=== PATIENT | female | born 1980 | race Caucasian/White ===

== ENCOUNTER 2023-06-15 10:45 | Outpatient (CLI) | payer MEDICAID, SELFPAY ==
--- OUTSIDE RECORDS SUMMARY | 2023-06-15 10:50 | XMS_ITS | Data Portability ---
Author Name Unknown Address [address] [place] [address] Phone [phone] Organization [facility], [facility] Address [address] [facility] [address] [place] [address] Assessment Encounter Date Assessment Date Assessment LastModified by Organization Details LastModified Time 02/18/2022 02/18/2022 Of note a total of 15 minutes was spent: preparing to see the patient by reviewing records, images, and laboratory data; obtaining/karthik davis separately obtained history; performing physical examination, counseling and educating patient/family/ caregiver; ordering appropriate medications, labs, imaging or procedures; documenting the clinical encounter; and coordination of care. Not available 02/18/2022 09:59:44 07/08/2022 07/08/2022 Of note a total of 20 minutes was spent: preparing to see the patient by reviewing records, images, and laboratory data; obtaining/karthik davis separately obtained history; performing physical examination, counseling and educating patient/family/ caregiver; ordering appropriate medications, labs, imaging or procedures; documenting the clinical encounter; and coordination of care. Not available 07/08/2022 18:20:44 Plan of Treatment Reminders Order Date Submit Date Provider Last Modified By Organization Details Last Modified Time Details Appointments None recorded. Lab kidney stone, 24-hour urine panel 2021 022 [email or web address] [facility], [address], [place], [address], 14:26:21 Referral None recorded. Procedures None recorded. Surgeries None recorded. Imaging US, kidney - pls call patient to schedule first available Ultrasound - Thank you 2021 022 [facility] Radiology Department, [address] [place], [address], 2 11:04:10 Medication Orders [facility] 2022 023 [email or web address] [facility], [place], [place], [address] [place], [address], 3 18:22:19 Patient TargetsNo targets recorded. Patient InstructionsNo instructions recorded. Reason for Referral None Reported. Results Created Date Observation Date Name Description Value Unit Range Abnormal Flag LastModifiedBy Organization Detail LastModifiedTime Result Notes None recorded. Problems Name Status Onset Date Resolution Date Notes Provider Name and Address Organization Details Recorded Time Clinical finding Active 013 N20.0 : Calculus of kidney - Notes:Negative Ureteroscopy for distal stone found on CT-Dr Morfin 02/20/2013-terrell nt removed today 02/27/2013 Not Available [facility] 10/12/2019 01:54:43 Problem Notes None recorded. Procedures Surgical History Date Name Laterality Status Provider Name and Address Organization Details Recorded Time Cystoscopy and treatment completed Not Available [facility] 10/05/2019 12:28:31 Cystoscopy and treatment completed Not Available [facility] 10/05/2019 12:28:31 Imaging Results None recorded. Procedure Notes None recorded. Medical Equipment None Reported. Allergies Allergen ID Allergen Name Allergen Category Reaction Reaction Severity Criticality Documentation Date Start Date Code Code System Note Provider Name and Address Organization Details Recorded Time 114527 latex environme nt,medica tion Not available Not available Not available 10/04/2019 84391 91 RxNorm Not Available [facility] 0 23:40:20 892251 lisinopri l medicatio n Not available Not available Not available 02/16/2022 28759 RxNorm Carol roy [place] [facility] 2 11:27:37 Medications Name Sig Start Date Stop Date Status Note LastModified by Organization Details LastModified Time [facility] Take one scoop daily dissolved in liquid. 03/15/ 2023 active Not Available Not Available Not Avai lable amoxicillin 500 mg capsule TAKE ONE CAPSULE BY MOUTH EVERY 8 HOURS active Not Available Not Available No t Available penicillin V potassium 500 mg tablet TAKE 2 TABLETS BY MOUTH NOW, THEN ONE TABLET EVERY 6 HOURS UNTIL GONE active Not Available Not Available N ot Available alprazolam 0.5 mg tablet TAKE ONE HALF TABLET BY MOUTH TWICE DAILY NEEDED FOR ANXIETY. active Not Available Not Available No t Available alprazolam 0.25 mg tablet TAKE ONE TABLET BY MOUTH TWICE A DAY NEEDED FOR ANXIETY active Not Available Not Available No t Available paroxetine 30 mg tablet TAKE ONE TABLET BY MOUTH EVERY DAY active Not Available Not Available No t Available hydroxyzine HCl 25 mg tablet TAKE ONE TO TWO TABLETS BY MOUTH THREE TIMES A DAY NEEDED FOR ANXIETY active Not Available Not Available No t Available hydrochloroth iazide 25 mg tablet TAKE ONE TABLET BY MOUTH EVERY DAY active Not Available Not Available No t Available zolpidem 5 mg tablet TAKE ONE TABLET BY MOUTH AT BEDTIME NEEDED FOR INSOMNIA active Not Available Not Available No t Available zolpidem 10 mg tablet TAKE ONE TABLET BY MOUTH AT BEDTIME NEEDED active Not Available Not Available No t Available atenolol 50 mg tablet TAKE ONE TABLET BY MOUTH EVERY DAY active Not Available Not Available No t Available Vitals Date Recorded Body height Body mass index (BMI) Body weight Provider Name and Address Organization Details Last Updated DateTime 02/18/2022 167.64 cm 32.3 kg/m2 27881.47 g Carol Perdue [facility] 02/18/2022 09:37:49 Date Recorded Body height Body mass index (BMI) Body weight Provider Name and Address Organization Details Last Updated DateTime 07/08/2022 167.64 cm 32.3 kg/m2 64518.47 g Carol Perdue [facility] 07/08/2022 10:40:30 Social History Question Answer Notes LastModified by Organizat ion Details LastModified Time Tobacco Smoking Status Never Smoker Not Available [facility] 10/05/2019 04:11:47 Race White Information n ot available 10/05/2019 Marital Status Informati on not available 10/05/2019 What Was The Date Of Your Most Recent Tobacco Screening? 07/08/2022 [email or web address] Information not available 07/08/2022 Sex: Female Functional Status None recorded. Mental Status None recorded. Family History Relationship Description Onset Age of this Age Resolved Age Notes Notes:Cancer, prostate:Fathe r Asthma:Mother Heart Disease:Mother Medical History Condition Response Kidney Stones Y Gynecological HistoryNo gynecological history recorded. Obstetrics History GPAL:G 0 P 0 0 0 0 Past Encounters Encounter ID Performer Location Encounter Start Date Encounter Closed Date Diagnosis/Indication [id number] Sim Saavedra MD [facility] [address] [place] [address] 02/18/2022 09:36:44 02/20/2022 10:50:04 Kidney stone [id number] MD [facility] [address] [place] [address] 07/08/2022 10:37:02 07/10/2022 10:16:51 Kidney stone Health Concerns Section Related Observation LastModified by Organization Detai ls LastModified Time None Recorded Concern Status LastModified by Organization Details LastModified Time None Recorded Advance Directives Directive None Recorded Payers Encounter Date Sequence Insurance Name Policy Number Policy Aleman Covered Member ID Aleman Member ID Guarantor Name 07/08/2022 1 [facility] [place] [place] [place] Jane De Oliveira [id number] Jane De Oliveira 07/08/2022 2 [facility] [place] [place] [id number] Jane De Oliveira [id number] Jane De Oliveira 02/18/2022 1 [facility]ESS [place] [place] [place] Jane De Oliveira [id number] Jane De Oliveira Notes Date Note Type Note Provider Name and Address Organization Details Recorded Time 02/18/2022 text/html HPI Notes: Ms. Gia maravilla is a very pleasant 39-year-old female who is now had approximately 20 episodes of nephrolithiasis. She has spontaneously passed the vast majority of her stones but has required 3 stents forward this course. She first made stones in the year 2006 during her second . She was intermittently followed by a urologist down at [facility] who did perform a 24-hour urine however she is not 100% sure what the results were. She was recommended to include some dietary citrate and increase her fluids but she is continue to form stones. She was most recently in the [facility] on May 18 with the acute onset of right-sided sided back pain consistent with previous stone episodes. She underwent a CT scan which did note a 8 x 5 mm calculus proximal ureter. Per her report she has had stones bilaterally and she brings a collection with her today some of which ranged from 1 to [address] up to approximately 1 cm in greatest dimension. 06/21/19: She is now status post cystoscopy, bilateral retrograde pyelograms, bilateral ureteroscopy, holmium laser lithotripsy, bilateral ureteral stent placement. Patient has had significant amount of discomfort with the indwelling stents and therefore presents today for stent removal. Denies any associated fevers, chills but has been occasionally nauseous. Her symptoms have otherwise been primarily urinary urgency and flank pain. 02/18/2022: She is now status post cystoscopy, bilateral retrograde pyelograms, bilateral ureteroscopy, holmium laser lithotripsy, bilateral ureteral stent placement. She has been doing well since our last meeting. Did pass a smal stone a few weeks ago but overall fairly easy. No current flank/back pain or urinary symptoms. This visit was conducted by telephone due to the COVID-19 crisis. Prior to conducting our telephone visit, the patient was apprised of the risks, benefits and alternatives to telephone visits including but not limited to poor audio quality, interrupted visits due to technological limitations, delays in medical evaluation and treatment due to deficiencies or failures of equipment, failure of security protocols resulting in a breach of privacy of personal medical information and a lack of access to complete medical records resulting in not fully informed decisions. Also, because of the COVID-19 pandemic, it was not possible for the patient to sign the privacy regulations, HIPAA release and assignment of benefits forms. The patient was given the opportunity to ask questions about these policies and gave verbal acknowledgement and approval of these policies as well as to hold this meeting by telephone. Lastly, the patient agreed to allowing their medication history to be pulled from a national pharmacy database to facilitate and coordinate their care. Sim Saavedra MD [address] [place] [address],[address], [place], [address], [facility] 02/18/2022 10:00:04 07/08/2022 text/html HPI Notes: Ms. Gia maravilla is a very pleasant 42-year-old female who is now had approximately 20 episodes of nephrolithiasis. She has spontaneously passed the vast majority of her stones but has required 3 stents forward this course. She first made stones in the year 2006 during her second . She was intermittently followed by a urologist down at [facility] who did perform a 24-hour urine however she is not 100% sure what the results were. She was recommended to include some dietary citrate and increase her fluids but she is continue to form stones. She was most recently in the [facility] ER on May 18 with the acute onset of right-sided sided back pain consistent with previous stone episodes. She underwent a CT scan which did note a 8 x 5 mm calculus proximal ureter. Per her report she has had stones bilaterally and she brings a collection with her today some of which ranged from 1 to [address] up to approximately 1 cm in greatest dimension. 06/21/19: She is now status post cystoscopy, bilateral retrograde pyelograms, bilateral ureteroscopy, holmium laser lithotripsy, bilateral ureteral stent placement. Patient has had significant amount of discomfort with the indwelling stents and therefore presents today for stent removal. Denies any associated fevers, chills but has been occasionally nauseous. Her symptoms have otherwise been primarily urinary urgency and flank pain. 02/18/2022: She is now status post cystoscopy, bilateral retrograde pyelograms, bilateral ureteroscopy, holmium laser lithotripsy, bilateral ureteral stent placement. She has been doing well since our last meeting. Did pass a smal stone a few weeks ago but overall fairly easy. No current flank/back pain or urinary symptoms. 07/08/2022: Here for follow up bilateral nephrolithiasis. Completed 24 hour urine for my evaluation. Two main findings were low urine volume and low urine citrate. This visit was conducted by telephone due to the COVID-19 crisis. Prior to conducting our telephone visit, the patient was apprised of the risks, benefits and alternatives to telephone visits including but not limited to poor audio quality, interrupted visits due to technological limitations, delays in medical evaluation and treatment due to deficiencies or failures of equipment, failure of security protocols resulting in a breach of privacy of personal medical information and a lack of access to complete medical records resulting in not fully informed decisions. Also, because of the COVID-19 pandemic, it was not possible for the patient to sign the privacy regulations, HIPAA release and assignment of benefits forms. The patient was given the opportunity to ask questions about these policies and gave verbal acknowledgement and approval of these policies as well as to hold this meeting by telephone. Lastly, the patient agreed to allowing their medication history to be pulled from a national pharmacy database to facilitate and coordinate their care. Sim Saavedra MD [address] [place] [address],[address], [address], [facility] 07/08/2022 18:25:11 OBGyn Episode No OBEpisode recorded.
--- OUTSIDE RECORDS SUMMARY | 2023-06-15 10:50 | XMS_ITS | Clinical Summary ---
Author Name Unknown Organization [email or web address] Address [place], [place] [address] Care Team Providers Care Manufacturing Advisor Name Role Phone Hussain Hutchins MD Primary Care Provider [phone] Allergies Active Allergy Reactions Criticality Noted Date Comments Latex Rash 05/24/2019 Lisinopril Cough 05/24/2019 Medications Medication Sig Dispensed Refills Start Date End Date Status VENTOLIN HFA 90 mcg/actuation inhaler 0 08/11/2018 Active atenolol (TENORMIN) 25 mg tablet 0 05/18/2019 Active PARoxetine (PAXIL) 30 mg tablet 0 05/03/2019 Active tamsulosin (FLOMAX) 0.4 mg capsule 0 05/19/2019 Active oxyCODONE-acetamin ophen, 5-325 mg, (PERCOCET) 5-325 mg per tablet 0 05/19/2019 Active tamsulosin (FLOMAX) 0.4 mg capsuleIndications :Kidney stone Take 1 capsule by mouth once daily after a meal. 20 Each 0 06/13/2019 Active HYDROcodone-acetam inophen, 5-325 mg, (NORCO) per tabletIndications: Kidney stone Take 1-2 tablets by mouth every 4 hours if needed for Pain Max acetaminophen dose: 4000 mg in 24 hrs. 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 Pulse 83 06/21/2019 1:16 PM REGIONAL SALES MANAGER Temperature 36.7 ??C (98 ??F) 06/21/2019 1:16 PM REGIONAL SALES MANAGER Respiratory Rate 14 06/13/2019 3:45 PM REGIONAL SALES MANAGER Oxygen Saturation 96% 06/21/2019 1:16 PM REGIONAL SALES MANAGER Inhaled Oxygen Concentration - - Weight 83 kg (182 lb 14.4 oz) 06/21/2019 1:16 PM REGIONAL SALES MANAGER Height 165.1 cm (5' 5) 06/13/2019 10:45 AM REGIONAL SALES MANAGER Body Mass Index 30.44 06/13/2019 10:45 AM REGIONAL SALES MANAGER Plan of Treatment Health Maintenance Due Date Last Done Comments COVID-19 vaccine series (#1) 1982 Tdap 1993 Depression screening for age 12+ 1994 HIV for age 15-65 1997 Hepatitis C screening for ag e 18-79 2000 Tetanus booster 2002 Pap test for age 21-65 06/10/2018 6, 06/10/2015, 12/06/2009 BMI (ht and wt on same day) for age 18+ 05/24/2020 05/24/2019 Influenza for age 9-49 12/25/2022 Pneumococcal series for age 6-64 Aged Out No longer eligible b ased on patient's age to complete this topic Medical Devices Implanted Type Area Alteration Tailor Apprentice Device Identifier Shelf Expiration Date Model / Serial / Lot Stent Uret [id number] Contour - [id number] Implanted:Qty: 1 on 06/13/2019 by Sim Saavedra MD at [facility] Right: Ureter [facility] 03/20/2022 [id number]# / / [id number] Stent Uret [id number] Contour - [id number] Implanted:Qty: 1 on 06/13/2019 by Sim Saavedra MD at [facility] Right: Ureter [facility] 02/19/2022 [id number]# / / [id number] Advance Directives Documents on File Type Date Recorded 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
--- NOTE | 2023-06-15 11:00 | US_ITS ---
Final Report Patient: CLARE GARRETT Facility:?[facility] Patient ID:?[id number] Site Patient ID:?[id number]. Site :?1982 Study:?US Abdomen/Pelvis RENAL-06/15/2023 12:19:42 PM Ordering Physician:?MARYCARMEN LANE Final Report: CLINICAL HISTORY: Kidney stones COMPARISON: CT 05/28/2019, ultrasound 11/22/2015 TECHNIQUE: Jackson scale and color Doppler images were acquired of the kidneys and urinary bladder. FINDINGS: Similar morphologic appearance of the kidneys compared to the prior ultrasound. No stones are present on the current exam. No hydronephrosis. The right kidney measures 10.7cm in length and the left kidney measures 10.5cm in length. The renal cortex appears thinned bilaterally measuring 5 millimeters on the right and 6 millimeters on the left. No abnormal vascularity. The urinary bladder appears incompletely distended. Color Doppler images reveal a normal appearance of both ureteral jets. There is no evidence of bladder calculi or diverticula. IMPRESSION: No sonographic evidence of renal stones. No hydronephrosis. Chronic thinning of the renal cortex. Dictated by Jose Munoz MD @ 06/16/2023 5:53:43 AM (Electronic Signature)
== END 2023-06-15 10:46 | disposition home or self-care (01) ==
PROVIDERS: PCP Family Medicine; Visit Provider Urology
DX: N20.0 Calculus of kidney (principal)
CPT/HCPCS: 76775

== ENCOUNTER 2023-07-12 13:51 | Outpatient (CLI) | payer MEDICAID, SELFPAY | END 2023-07-12 13:52 | disposition home or self-care (01) | PROVIDERS: PCP Family Medicine; Visit Provider Family Medicine | DX: I10 Essential (primary) hypertension (principal); M79.641 Pain in right hand; M79.642 Pain in left hand; Z13.29 Encounter for screening for other suspected endocrine disorder | CPT/HCPCS: 80048; 84443; 86200; 86431 ==

== ENCOUNTER 2024-05-26 11:03 | Outpatient (CLI) | payer MEDICAID, SELFPAY | END 2024-05-26 11:04 | disposition home or self-care (01) | LOC: US 11:04 | PROVIDERS: PCP Family Medicine; Visit Provider Urology | DX: N20.0 Calculus of kidney (principal) | CPT/HCPCS: 76770 ==

== ENCOUNTER 2024-06-23 12:51 | Outpatient (CLI) | payer MEDICAID, SELFPAY | END 2024-06-23 12:52 | disposition home or self-care (01) | LOC: CT 12:54 | PROVIDERS: PCP Family Medicine; Visit Provider Physician Assistant | DX: N20.0 Calculus of kidney (principal) | CPT/HCPCS: 74176 ==

== ENCOUNTER 2024-08-16 15:32 | Outpatient (CLI) | payer MEDICAID, SELFPAY | END 2024-08-16 15:33 | disposition home or self-care (01) | PROVIDERS: PCP Family Medicine; Visit Provider Family Medicine | DX: I10 Essential (primary) hypertension (principal); Z11.3 Encounter for screening for infections with a predominantly sexual mode of transmission; Z11.4 Encounter for screening for human immunodeficiency virus [HIV] | CPT/HCPCS: 80048; 86703; 87491; 87591 ==